=== PATIENT | male | born 2000 | race Two or more races ===

== ENCOUNTER 2018-05-21 15:34 | Emergency (ER) | payer SELFPAY ==
[~2018-05-21] VITALS: Ht 180.3 cm; Wt 64.9 kg
[2018-05-21 16:23] VITALS: BP 134/89
== END 2018-05-21 18:34 | disposition home or self-care (01) ==
LOC: ER 15:36
DX: R19.7 Diarrhea, unspecified (principal)
CPT/HCPCS: 87015; 87045; 87427 ×2; 89055; 99283; A4606; Z7610